=== PATIENT | male | born 1970 | race Caucasian/White ===

== ENCOUNTER → 2017-05-05 | Outpatient (CLI) | payer BC, OTHER ==
[~2017-05-05] MED LIST: CLOPIDOGREL75 MG PO; LISINOPRIL5 MG PO; LOPRESSOR25 MG PO; METFORMIN HCL500 MG PO; NEXIUM40 MG PO; PANTOPRAZOLE SO40 MG PO
[2017-05-05 16:54] LABS: HEMATOCRIT 44.7 % (42.0-52.0); HEMOGLOBIN 15.8 g/dl (14.0-18.0); MEAN CELL VOLUME 90.9 fl (80.0-94.0); MEAN CORPUSCULAR HGB 32.1 pg (27.0-31.0); MEAN CORPUSCULAR HGB CONC 35.3 g/dl (33.0-37.0); MEAN PLATELET VOLUME 10.8 fl (9.6-12.3); PLATELET COUNT AUTOMATED 234 10*3/uL (130-400); RED BLOOD COUNT 4.92 10*6/uL (4.50-5.90); WHITE BLOOD COUNT 15.8 10*3/uL (4.8-10.8)
[2017-05-05 17:12] LABS: ALBUMIN 2.5 gm/dl (3.1-4.5); BUN 21 mg/dl (7-24); CHLORIDE 88 mmol/L (98-107); CREATININE 1.04 mg/dL (0.70-1.30); POTASSIUM 4.6 mmol/L (3.5-5.1); SGOT/AST 22 IU/L (3-35); SGPT/ALT 38 U/L (12-78); SODIUM 126 mmol/L (136-145)
[2017-05-05 17:15] LABS: ALKALINE PHOSPHATASE 99 U/L (45-117); CHOLESTEROL 99 mg/dL (<200); TOTAL PROTEIN 7.3 gm/dL (6.4-8.2); TRIGLYCERIDES 228 mg/dl (<150); VLDL CHOLESTEROL 46 mg/dL (6-40)
[2017-05-05 17:16] LABS: HDL CHOLESTEROL 17 mg/dl (40-60); LDL CHOLESTEROL 36 mg/dL (9-159)
[2017-05-05 17:28] LABS: LIPASE 1838 U/L (73-393)
[2017-05-05 17:38] LABS: TOTAL CELLS COUNTED 100 #CELLS
[2017-05-05 17:39] LABS: PLATELET SUFFICIENCY NORMAL (NORMAL)
== END | disposition home or self-care (01) ==
LOC: LAB 16:17
PROVIDERS: Registered Nurse Flight
DX: K29.00 Acute gastritis without bleeding (principal); E11.9 Type 2 diabetes mellitus without complications; E78.4 Other hyperlipidemia

== ENCOUNTER 2017-05-06 17:19 | Inpatient (IN) | payer BC, OTHER ==
[~2017-05-06] VITALS: Ht 182.9 cm; Wt 95.4 kg
[~2017-05-06 17:19] MED LIST changes: -LOPRESSOR25 MG PO; -NEXIUM40 MG PO
[2017-05-06 17:28] VITALS: BP 134/88
[2017-05-06 19:25] LABS: HEMATOCRIT 44.9 % (42.0-52.0); HEMOGLOBIN 15.8 g/dl (14.0-18.0); MEAN CELL VOLUME 91.8 fl (80.0-94.0); MEAN CORPUSCULAR HGB 32.3 pg (27.0-31.0); MEAN CORPUSCULAR HGB CONC 35.2 g/dl (33.0-37.0); MEAN PLATELET VOLUME 10.4 fl (9.6-12.3); PLATELET COUNT AUTOMATED 263 10*3/uL (130-400); RED BLOOD COUNT 4.89 10*6/uL (4.50-5.90); RED CELL DISTRI WIDTH 12.1 % (0-14.5); WHITE BLOOD COUNT 16.4 10*3/uL (4.8-10.8)
[2017-05-06 19:39] LABS: ALBUMIN 2.2 gm/dl (3.1-4.5); ALKALINE PHOSPHATASE 88 U/L (45-117); BUN 19 mg/dl (7-24); CHLORIDE 91 mmol/L (98-107); CREATININE 0.84 mg/dL (0.70-1.30); POTASSIUM 4.8 mmol/L (3.5-5.1); SGOT/AST 30 IU/L (3-35); SGPT/ALT 34 U/L (12-78); SODIUM 128 mmol/L (136-145); TOTAL PROTEIN 7.5 gm/dL (6.4-8.2)
[2017-05-06 19:41] LABS: LIPASE 2118 U/L (73-393)
[2017-05-06 19:44] LABS: BASOPHILS 1 % (0-1); TOTAL CELLS COUNTED 100 #CELLS
[2017-05-06 19:45] LABS: PLATELET SUFFICIENCY NORMAL (NORMAL); POLYCHROMASIA SLIGHT
[2017-05-06 20:26] LABS: BILIRUBIN NEGATIVE (NEGATIVE); BLOOD NEGATIVE (NEGATIVE); CLARITY CLEAR (CLEAR); COLOR YELLOW (YELLOW); GLUCOSE 2+ (NEGATIVE); KETONE 3+ (NEGATIVE); LEUKO ESTERASE NEGATIVE (NEGATIVE); NITRITE NEGATIVE (NEGATIVE); SPECIFIC GRAVITY <= 1.005 (1.005-1.030); UROBILINOGEN 0.2 E.U./dl (0.2-1.0)
[2017-05-06 20:33] LABS: BACTERIA TRACE; EPITHELIAL CELLS 0-2; RBC 0-2 rbc/hpf (0-2)
[2017-05-06 21:00] VITALS: BP 139/71
[2017-05-06] MEDS ORDERED: LOPRESSOR25 MG PO (21:17)
[2017-05-06] MEDS ORDERED: NEXIUM40 MG PO (21:18)
[2017-05-06 23:15] LABS: BUN 16 mg/dl (7-24); CHLORIDE 96 mmol/L (98-107); CREATININE 0.74 mg/dL (0.70-1.30); POTASSIUM 4.2 mmol/L (3.5-5.1); SODIUM 132 mmol/L (136-145)
[2017-05-07] VITALS: BP 111/70
[2017-05-07 02:29] LABS: BUN 14 mg/dl (7-24); CHLORIDE 97 mmol/L (98-107); CREATININE 0.67 mg/dL (0.70-1.30); POTASSIUM 3.5 mmol/L (3.5-5.1); SODIUM 134 mmol/L (136-145)
[2017-05-07 04:01] VITALS: BP 122/76
[2017-05-07 04:55] LABS: HEMATOCRIT 39.3 % (42.0-52.0); MEAN CELL VOLUME 91.4 fl (80.0-94.0); MEAN CORPUSCULAR HGB 31.9 pg (27.0-31.0); MEAN CORPUSCULAR HGB CONC 34.9 g/dl (33.0-37.0); PLATELET COUNT AUTOMATED 228 10*3/uL (130-400); RED CELL DISTRI WIDTH 12.1 % (0-14.5); WHITE BLOOD COUNT 17.6 10*3/uL (4.8-10.8)
[2017-05-07 04:57] LABS: HEMOGLOBIN 13.7 g/dl (14.0-18.0)
[2017-05-07 05:04] LABS: ACT PARTIAL THROMBO TIME 23.1 SECONDS (20.8-31.5); INTERNATIONAL NORM RATIO 1.1 (2.0-3.5)
[2017-05-07 05:20] LABS: ALBUMIN 1.9 gm/dl (3.1-4.5); ALKALINE PHOSPHATASE 63 U/L (45-117); BUN 12 mg/dl (7-24); CHLORIDE 96 mmol/L (98-107); CHOLESTEROL 70 mg/dL (<200); CREATININE 0.56 mg/dL (0.70-1.30); HDL CHOLESTEROL 18 mg/dl (40-60); LDL CHOLESTEROL 27 mg/dL (9-159); LIPASE 1392 U/L (73-393); PHOSPHOROUS 2.8 mg/dL (2.5-4.9); POTASSIUM 3.5 mmol/L (3.5-5.1); SGOT/AST 23 IU/L (3-35); SGPT/ALT 26 U/L (12-78); SODIUM 132 mmol/L (136-145); TRIGLYCERIDES 127 mg/dl (<150); VLDL CHOLESTEROL 25 mg/dL (6-40)
[2017-05-07 05:25] LABS: THYROID STIM HORMONE (HS) 0.989 uIU/ml (0.358-4.75)
[2017-05-07 05:28] LABS: PLATELET SUFFICIENCY NORMAL (NORMAL); TOTAL CELLS COUNTED 100 #CELLS
[2017-05-07 08:00] VITALS: BP 120/71
[2017-05-07 08:39] LABS: VITAMIN D, 25-HYDROXY 18.2 ng/mL (30-100)
[2017-05-07 09:12] LABS: BUN 10 mg/dl (7-24); CHLORIDE 96 mmol/L (98-107); CREATININE 0.63 mg/dL (0.70-1.30); POTASSIUM 3.8 mmol/L (3.5-5.1); SODIUM 132 mmol/L (136-145)
[2017-05-07 12:00] VITALS: BP 111/69
[2017-05-07 16:00] VITALS: BP 146/86
== END 2017-05-07 16:32 | disposition left against medical advice (07) | DRG 438 ==
LOC: ED 17:19 → ICCU 20:16 → EDHOLD 20:16 → ICCU 20:16 → 4E 05-07 15:06 → ICCU 05-07 15:27
PROVIDERS: Family Medicine; Nurse Practitioner Family; ADMIT Student in an Organized Health Care Education/Training Program
DX: K85.90 Acute pancreatitis without necrosis or infection, unspecified (principal); E13.10 Other specified diabetes mellitus with ketoacidosis without coma; E43 Unspecified severe protein-calorie malnutrition; R65.10 Systemic inflammatory response syndrome (SIRS) of non-infectious origin without acute organ dysfunction; K76.0 Fatty (change of) liver, not elsewhere classified; E87.1 Hypo-osmolality and hyponatremia; E78.5 Hyperlipidemia, unspecified; I10 Essential (primary) hypertension; Z53.21 Procedure and treatment not carried out due to patient leaving prior to being seen by health care provider; K57.90 Diverticulosis of intestine, part unspecified, without perforation or abscess without bleeding; F17.200 Nicotine dependence, unspecified, uncomplicated; Z98.61 Coronary angioplasty status; Z82.49 Family history of ischemic heart disease and other diseases of the circulatory system; Z71.6 Tobacco abuse counseling; Z68.28 Body mass index [BMI] 28.0-28.9, adult; Z79.4 Long term (current) use of insulin

== ENCOUNTER → 2017-05-09 | Outpatient (CLI) | payer BC, OTHER ==
[~2017-05-09] MED LIST changes: +LOPRESSOR25 MG PO; +NEXIUM40 MG PO
[2017-05-09 11:05] LABS: HEMATOCRIT 42.2 % (42.0-52.0); HEMOGLOBIN 14.7 g/dl (14.0-18.0); MEAN CELL VOLUME 93.4 fl (80.0-94.0); MEAN CORPUSCULAR HGB 32.5 pg (27.0-31.0); MEAN CORPUSCULAR HGB CONC 34.8 g/dl (33.0-37.0); RED BLOOD COUNT 4.52 10*6/uL (4.50-5.90); RED CELL DISTRI WIDTH 12.4 % (0-14.5); WHITE BLOOD COUNT 14.9 10*3/uL (4.8-10.8)
[2017-05-09 11:25] LABS: ALBUMIN 2.3 gm/dl (3.1-4.5); ALKALINE PHOSPHATASE 86 U/L (45-117); BUN 12 mg/dl (7-24); CHLORIDE 100 mmol/L (98-107); CREATININE 0.78 mg/dL (0.70-1.30); LIPASE 1253 U/L (73-393); POTASSIUM 3.8 mmol/L (3.5-5.1); SGOT/AST 29 IU/L (3-35); SGPT/ALT 36 U/L (12-78); SODIUM 135 mmol/L (136-145); TOTAL PROTEIN 7.2 gm/dL (6.4-8.2)
== END | disposition home or self-care (01) ==
LOC: LAB 10:41
PROVIDERS: Registered Nurse Flight
DX: E11.00 Type 2 diabetes mellitus with hyperosmolarity without nonketotic hyperglycemic-hyperosmolar coma (NKHHC) (principal); K85.90 Acute pancreatitis without necrosis or infection, unspecified; D72.829 Elevated white blood cell count, unspecified; R65.10 Systemic inflammatory response syndrome (SIRS) of non-infectious origin without acute organ dysfunction

== ENCOUNTER → 2017-06-09 | Outpatient (CLI) | payer BC, OTHER ==
[2017-06-09 16:16] LABS: LIPASE 409 U/L (73-393)
== END | disposition home or self-care (01) ==
LOC: LAB 15:37
PROVIDERS: Internal Medicine Gastroenterology
DX: R10.30 Lower abdominal pain, unspecified (principal); K85.90 Acute pancreatitis without necrosis or infection, unspecified

== ENCOUNTER → 2018-04-09 | Outpatient (CLI) | payer BC, OTHER ==
[2018-04-09 16:00] LABS: HEMATOCRIT 46.2 % (42.0-52.0); MEAN CELL VOLUME 94.1 fl (80.0-94.0); MEAN CORPUSCULAR HGB 32.6 pg (27.0-31.0); MEAN CORPUSCULAR HGB CONC 34.6 g/dl (33.0-37.0); MEAN PLATELET VOLUME 10.4 fl (9.6-12.3); RED BLOOD COUNT 4.91 10*6/uL (4.50-5.90); RED CELL DISTRI WIDTH 11.9 % (0-14.5); WHITE BLOOD COUNT 6.8 10*3/uL (4.8-10.8)
[2018-04-09 16:16] LABS: ALBUMIN 3.5 gm/dl (3.1-4.5); ALKALINE PHOSPHATASE 43 U/L (45-117); BUN 6 mg/dl (7-24); CHLORIDE 108 mmol/L (98-107); CHOLESTEROL 154 mg/dL (<200); CREATININE 0.94 mg/dL (0.70-1.30); HDL CHOLESTEROL 31 mg/dl (40-60); LDL CHOLESTEROL 95 mg/dL (9-159); POTASSIUM 4.4 mmol/L (3.5-5.1); SGOT/AST 42 IU/L (3-35); SGPT/ALT 52 U/L (12-78); SODIUM 138 mmol/L (136-145); TOTAL PROTEIN 7.2 gm/dL (6.4-8.2); TRIGLYCERIDES 142 mg/dl (<150); VLDL CHOLESTEROL 28 mg/dL (6-40)
== END | disposition home or self-care (01) ==
LOC: LAB 15:25
PROVIDERS: Registered Nurse Flight
DX: E11.65 Type 2 diabetes mellitus with hyperglycemia (principal); E78.49 Other hyperlipidemia; Z87.19 Personal history of other diseases of the digestive system

== ENCOUNTER → 2018-04-21 | Outpatient (CLI) | payer BC, OTHER | LOC: ORTHO 04:05 | DX: M25.522 Pain in left elbow (principal); R20.0 Anesthesia of skin; M79.642 Pain in left hand ==

== ENCOUNTER → 2018-10-02 | Outpatient (CLI) | payer BC ==
[2018-10-02 16:56] LABS: CHOLESTEROL 166 mg/dL (<200); HDL CHOLESTEROL 31 mg/dl (40-60); TRIGLYCERIDES 408 mg/dl (<150)
[2018-10-02 17:04] LABS: VITAMIN D, 25-HYDROXY 23.6 ng/mL (30-100)
== END | disposition home or self-care (01) ==
LOC: LAB 15:47
PROVIDERS: Internal Medicine Endocrinology, Diabetes & Metabolism
DX: G62.9 Polyneuropathy, unspecified (principal); I10 Essential (primary) hypertension; E55.9 Vitamin D deficiency, unspecified

== ENCOUNTER → 2019-03-01 | Outpatient (CLI) | payer BC ==
[2019-03-01 09:57] LABS: CHLORIDE 102 mmol/L (98-107); POTASSIUM 4.1 mmol/L (3.5-5.1); SODIUM 135 mmol/L (136-145)
[2019-03-01 10:06] LABS: ALBUMIN 3.8 gm/dl (3.1-4.5); ALKALINE PHOSPHATASE 53 U/L (45-117); BUN 9 mg/dl (7-24); CHOLESTEROL 132 mg/dL (<200); HDL CHOLESTEROL 40 mg/dl (40-60); LDL CHOLESTEROL 53 mg/dL (9-159); SGOT/AST 36 IU/L (3-35); SGPT/ALT 44 U/L (12-78); TOTAL PROTEIN 7.9 gm/dL (6.4-8.2); TRIGLYCERIDES 195 mg/dl (<150); VLDL CHOLESTEROL 39 mg/dL (6-40)
[2019-03-01 10:38] LABS: VITAMIN D, 25-HYDROXY 23.9 ng/mL (30-100)
[2019-03-02 11:11] LABS: CREATININE,URINE 40.2 mg/dL (Not Estab.); MICRO ALBUMIN/CRE RATIO 90.5 (0.0-30.0)
[2019-03-02 12:07] LABS: LDL CHOLESTEROL (DIRECT) 71 mg/dL (0-99)
== END | disposition home or self-care (01) ==
LOC: LAB 09:09
PROVIDERS: Internal Medicine Endocrinology, Diabetes & Metabolism
DX: E08.10 Diabetes mellitus due to underlying condition with ketoacidosis without coma (principal); E78.2 Mixed hyperlipidemia; E55.9 Vitamin D deficiency, unspecified; G62.9 Polyneuropathy, unspecified

== ENCOUNTER 2019-05-24 08:28 | Emergency (ER) | payer BC ==
[~2019-05-24] VITALS: Ht 182.8 cm; Wt 94.3 kg
[2019-05-24] MEDS ORDERED: AUGMENTIN 875-875 MG PO (09:50)
[2019-05-24] MEDS ORDERED: MOXIFLOXACIN3 ML OPH (09:50)
== END 2019-05-24 10:00 | disposition home or self-care (01) ==
LOC: ED 08:28
DX: S05.02XA Injury of conjunctiva and corneal abrasion without foreign body, left eye, initial encounter (principal); H11.32 Conjunctival hemorrhage, left eye; E11.9 Type 2 diabetes mellitus without complications; E78.5 Hyperlipidemia, unspecified; I10 Essential (primary) hypertension; W55.03XA Scratched by cat, initial encounter; Y93.89 Activity, other specified; Y92.098 Other place in other non-institutional residence as the place of occurrence of the external cause; Y99.8 Other external cause status

== ENCOUNTER → 2019-06-18 | Outpatient (CLI) | payer BC, OTHER ==
[~2019-06-18] MED LIST changes: +AUGMENTIN 875-875 MG PO; +MOXIFLOXACIN3 ML OPH
[2019-06-18 17:08] LABS: ALBUMIN 3.8 gm/dl (3.1-4.5); ALKALINE PHOSPHATASE 48 U/L (45-117); BUN 12 mg/dl (7-24); CHLORIDE 104 mmol/L (98-107); CHOLESTEROL 119 mg/dL (<200); CREATININE 1.04 mg/dL (0.70-1.30); HDL CHOLESTEROL 39 mg/dl (40-60); LDL CHOLESTEROL 47 mg/dL (9-159); POTASSIUM 3.9 mmol/L (3.5-5.1); SGOT/AST 23 IU/L (3-35); SGPT/ALT 38 U/L (12-78); SODIUM 138 mmol/L (136-145); TOTAL PROTEIN 7.6 gm/dL (6.4-8.2); TRIGLYCERIDES 165 mg/dl (<150); VLDL CHOLESTEROL 33 mg/dL (6-40)
[2019-06-18 17:57] LABS: VITAMIN D, 25-HYDROXY 36.1 ng/mL (30-100)
[2019-06-19 06:03] LABS: CREATININE,URINE 79.5 mg/dL (Not Estab.); MICRO ALBUMIN/CRE RATIO 20.5 (0.0-30.0)
== END | disposition home or self-care (01) ==
LOC: LAB 16:31
PROVIDERS: Internal Medicine Endocrinology, Diabetes & Metabolism
DX: E08.10 Diabetes mellitus due to underlying condition with ketoacidosis without coma (principal); E55.9 Vitamin D deficiency, unspecified; G62.9 Polyneuropathy, unspecified

== ENCOUNTER → 2019-11-12 | Outpatient (CLI) | payer BC, OTHER ==
[2019-11-12 16:20] LABS: ALBUMIN 3.8 gm/dl (3.1-4.5); BUN 12 mg/dl (7-24); CHLORIDE 105 mmol/L (98-107); CHOLESTEROL 116 mg/dL (<200); CREATININE 0.92 mg/dL (0.70-1.30); POTASSIUM 3.7 mmol/L (3.5-5.1); SGOT/AST 18 IU/L (3-35); SGPT/ALT 33 U/L (12-78); SODIUM 136 mmol/L (136-145); TRIGLYCERIDES 179 mg/dl (<150); VLDL CHOLESTEROL 36 mg/dL (6-40)
[2019-11-12 16:23] LABS: ALKALINE PHOSPHATASE 52 U/L (45-117); HDL CHOLESTEROL 37 mg/dl (40-60); LDL CHOLESTEROL 43 mg/dL (9-159); TOTAL PROTEIN 7.8 gm/dL (6.4-8.2)
[2019-11-12 16:59] LABS: VITAMIN D, 25-HYDROXY 26.3 ng/mL (30-100)
[2019-11-13 10:03] LABS: CREATININE,URINE 57.8 mg/dL (Not Estab.)
== END | disposition home or self-care (01) ==
LOC: LAB 15:46
PROVIDERS: Internal Medicine Endocrinology, Diabetes & Metabolism
DX: E55.9 Vitamin D deficiency, unspecified (principal); E53.8 Deficiency of other specified B group vitamins; E08.10 Diabetes mellitus due to underlying condition with ketoacidosis without coma

== ENCOUNTER → 2020-04-12 | Outpatient (CLI) | payer BC, OTHER ==
[2020-04-12 10:07] LABS: ALBUMIN 3.8 gm/dl (3.1-4.5); ALKALINE PHOSPHATASE 54 U/L (45-117); BUN 11 mg/dl (7-24); CHLORIDE 104 mmol/L (98-107); CHOLESTEROL 115 mg/dL (<200); CREATININE 0.84 mg/dL (0.70-1.30); HDL CHOLESTEROL 37 mg/dl (40-60); LDL CHOLESTEROL 27 mg/dL (9-159); POTASSIUM 4.3 mmol/L (3.5-5.1); SGOT/AST 28 IU/L (3-35); SGPT/ALT 47 U/L (12-78); SODIUM 134 mmol/L (136-145); TOTAL PROTEIN 7.9 gm/dL (6.4-8.2); TRIGLYCERIDES 257 mg/dl (<150); VLDL CHOLESTEROL 51 mg/dL (6-40)
[2020-04-12 10:42] LABS: VITAMIN D, 25-HYDROXY 32.1 ng/mL (30-100)
[2020-04-13 10:09] LABS: CREATININE,URINE 64.4 mg/dL (Not Estab.)
== END | disposition home or self-care (01) ==
LOC: LAB 09:13
PROVIDERS: ATTEND Internal Medicine Endocrinology, Diabetes & Metabolism
DX: E55.9 Vitamin D deficiency, unspecified (principal); E08.10 Diabetes mellitus due to underlying condition with ketoacidosis without coma; E53.8 Deficiency of other specified B group vitamins

== ENCOUNTER → 2020-09-26 | Outpatient (CLI) | payer BC ==
[2020-09-26 12:56] LABS: ALBUMIN 3.9 gm/dl (3.1-4.5); ALKALINE PHOSPHATASE 58 U/L (45-117); BUN 14 mg/dl (7-24); CHLORIDE 99 mmol/L (98-107); CHOLESTEROL 210 mg/dL (<200); CREATININE 0.96 mg/dL (0.70-1.30); HDL CHOLESTEROL 56 mg/dl (40-60); LDL CHOLESTEROL 137 mg/dL (9-159); POTASSIUM 3.8 mmol/L (3.5-5.1); SGOT/AST 26 IU/L (3-35); SGPT/ALT 46 U/L (12-78); SODIUM 132 mmol/L (136-145); TRIGLYCERIDES 87 mg/dl (<150); VLDL CHOLESTEROL 17 mg/dL (6-40)
[2020-09-26 13:19] LABS: VITAMIN D, 25-HYDROXY 36.1 ng/mL (30-100)
[2020-09-27 10:08] LABS: CREATININE,URINE 25.1 mg/dL (Not Estab.)
== END | disposition home or self-care (01) ==
LOC: LAB 11:56
PROVIDERS: ATTEND Internal Medicine Endocrinology, Diabetes & Metabolism
DX: E55.9 Vitamin D deficiency, unspecified (principal); E11.10 Type 2 diabetes mellitus with ketoacidosis without coma; E53.8 Deficiency of other specified B group vitamins

== ENCOUNTER → 2020-11-23 | Outpatient (CLI) | payer BC ==
[2020-11-23 15:01] LABS: BASO # 0.1 10*3/uL (0.0-0.1); BASO % 1.4 % (0.0-1.0); EOS # 0.1 10*3/uL (0.0-0.4); EOS % 0.9 % (1.0-4.0); HEMATOCRIT 44.8 % (42.0-52.0); LYMPH # 2.3 10*3/uL (1.3-4.4); LYMPH % 24.2 % (27.0-41.0); MEAN CELL VOLUME 92.2 fl (80.0-94.0); MEAN CORPUSCULAR HGB 31.1 pg (27.0-31.0); MEAN CORPUSCULAR HGB CONC 33.7 g/dl (33.0-37.0); MONO # 0.7 10*3/uL (0.1-1.0); MONO % 7.7 % (3.0-9.0); NEUT # 6.1 10*3/uL (2.3-7.9); NEUT % 64.6 % (47.0-73.0); PLATELET COUNT AUTOMATED 322 10*3/uL (130-400); RED BLOOD COUNT 4.86 10*6/uL (4.50-5.90); RED CELL DISTRI WIDTH 13.2 % (0-14.5); WHITE BLOOD COUNT 9.5 10*3/uL (4.8-10.8)
[2020-11-23 15:25] LABS: ALBUMIN 2.6 gm/dl (3.1-4.5); ALKALINE PHOSPHATASE 63 U/L (45-117); BUN 10 mg/dl (7-24); CHLORIDE 96 mmol/L (98-107); CREATININE 0.61 mg/dL (0.70-1.30); POTASSIUM 4.1 mmol/L (3.5-5.1); SGOT/AST 17 IU/L (3-35); SGPT/ALT 25 U/L (12-78); SODIUM 132 mmol/L (136-145); TOTAL PROTEIN 7.7 gm/dL (6.4-8.2)
== END | disposition home or self-care (01) ==
LOC: LAB 14:42
PROVIDERS: ATTEND Internal Medicine Endocrinology, Diabetes & Metabolism
DX: R63.4 Abnormal weight loss (principal)

== ENCOUNTER → 2020-12-29 | Outpatient (CLI) | payer BC ==
[2020-12-29 15:56] LABS: ALBUMIN 3.6 gm/dl (3.1-4.5); BUN 9 mg/dl (7-24); CHLORIDE 103 mmol/L (98-107); CHOLESTEROL 128 mg/dL (<200); CREATININE 0.58 mg/dL (0.70-1.30); POTASSIUM 4.2 mmol/L (3.5-5.1); SGOT/AST 17 IU/L (3-35); SGPT/ALT 17 U/L (12-78); SODIUM 136 mmol/L (136-145); TOTAL PROTEIN 7.6 gm/dL (6.4-8.2); TRIGLYCERIDES 179 mg/dl (<150)
[2020-12-29 15:57] LABS: ALKALINE PHOSPHATASE 59 U/L (45-117); LDL CHOLESTEROL 60 mg/dL (9-159)
[2020-12-30 10:07] LABS: CREATININE,URINE 48.9 mg/dL (Not Estab.)
== END | disposition home or self-care (01) ==
LOC: LAB 14:51
PROVIDERS: ATTEND Internal Medicine Endocrinology, Diabetes & Metabolism
DX: E55.9 Vitamin D deficiency, unspecified (principal); E08.10 Diabetes mellitus due to underlying condition with ketoacidosis without coma; E53.8 Deficiency of other specified B group vitamins

== ENCOUNTER → 2021-01-03 | Outpatient (CLI) | payer BC ==
[2021-01-03 14:01] LABS: FREE T4 1.17 ng/dl (0.76-1.46)
[2021-01-03 14:06] LABS: THYROID STIM HORMONE (HS) 1.32 uIU/ml (0.358-4.75)
== END | disposition home or self-care (01) ==
LOC: LAB 13:14
PROVIDERS: ATTEND Internal Medicine Endocrinology, Diabetes & Metabolism
DX: E11.65 Type 2 diabetes mellitus with hyperglycemia (principal)

== ENCOUNTER → 2021-02-19 | Outpatient (CLI) | payer BC | END | disposition home or self-care (01) | LOC: CARD 09:00 | PROVIDERS: ATTEND Internal Medicine Cardiovascular Disease | DX: I49.9 Cardiac arrhythmia, unspecified (principal) ==

== ENCOUNTER → 2021-03-22 | Outpatient (CLI) | payer BC ==
[2021-03-22 15:53] LABS: ALKALINE PHOSPHATASE 57 U/L (45-117); BUN 11 mg/dl (7-24); CHLORIDE 100 mmol/L (98-107); CHOLESTEROL 104 mg/dL (<200); CREATININE 0.85 mg/dL (0.70-1.30); LDL CHOLESTEROL 32 mg/dL (9-159); POTASSIUM 4.2 mmol/L (3.5-5.1); SGOT/AST 13 IU/L (3-35); SGPT/ALT 19 U/L (12-78); SODIUM 136 mmol/L (136-145); TOTAL PROTEIN 7.5 gm/dL (6.4-8.2); TRIGLYCERIDES 182 mg/dl (<150)
[2021-03-22 16:17] LABS: VITAMIN D, 25-HYDROXY 30.7 ng/mL (30-100)
== END | disposition home or self-care (01) ==
LOC: LAB 15:11
PROVIDERS: ATTEND Internal Medicine Endocrinology, Diabetes & Metabolism
DX: E55.9 Vitamin D deficiency, unspecified (principal); E11.65 Type 2 diabetes mellitus with hyperglycemia; E53.8 Deficiency of other specified B group vitamins

== ENCOUNTER → 2021-07-19 | Outpatient (CLI) | payer BC ==
[2021-07-19 11:15] LABS: BILIRUBIN Negative (Negative); BLOOD Negative (Negative); CLARITY Clear (Clear); COLOR Yellow (Yellow); GLUCOSE 3+ (Negative); KETONE Trace (Negative); LEUKO ESTERASE Negative (Negative); NITRITE Negative (Negative); UROBILINOGEN 0.2 E.U./dl (0.0-1.0)
[2021-07-19 11:28] LABS: EPITHELIAL CELLS 0-2
[2021-07-19 11:30] LABS: ALBUMIN 3.7 gm/dl (3.1-4.5); ALKALINE PHOSPHATASE 64 U/L (45-117); BUN 10 mg/dl (7-24); CHLORIDE 102 mmol/L (98-107); CHOLESTEROL 186 mg/dL (<200); CREATININE 0.73 mg/dL (0.70-1.30); LDL CHOLESTEROL 106 mg/dL (9-159); POTASSIUM 4.2 mmol/L (3.5-5.1); SGOT/AST 37 IU/L (3-35); SGPT/ALT 36 U/L (12-78); SODIUM 133 mmol/L (136-145); TOTAL PROTEIN 7.9 gm/dL (6.4-8.2); TRIGLYCERIDES 66 mg/dl (<150)
== END | disposition home or self-care (01) ==
LOC: LAB 10:46
PROVIDERS: ATTEND Internal Medicine
DX: E11.65 Type 2 diabetes mellitus with hyperglycemia (principal); E04.9 Nontoxic goiter, unspecified; E78.5 Hyperlipidemia, unspecified; E55.9 Vitamin D deficiency, unspecified

== ENCOUNTER → 2022-05-16 | Outpatient (CLI) | payer BC ==
[2022-05-16 15:45] LABS: BILIRUBIN Negative (Negative); BLOOD Negative (Negative); CLARITY Clear (Clear); COLOR Yellow (Yellow); GLUCOSE 3+ (Negative); KETONE 1+ (Negative); LEUKO ESTERASE Negative (Negative); NITRITE Negative (Negative); SPECIFIC GRAVITY 1.015 (1.001-1.030); UROBILINOGEN 0.2 E.U./dl (0.0-1.0)
[2022-05-16 16:03] LABS: EPITHELIAL CELLS 0-2; RBC 0-2 rbc/hpf (0-2)
[2022-05-16 16:10] LABS: ALKALINE PHOSPHATASE 52 U/L (46-116); BUN 5 mg/dl (9-23); CHLORIDE 101 mmol/L (98-107); CREATININE 0.83 mg/dL (0.70-1.30); FREE T4 1.21 ng/dl (0.89-1.76); SGPT/ALT 14 U/L (10-49); SODIUM 133 mmol/L (136-145); THYROID STIM HORMONE (HS) 2.338 uIU/ml (0.550-4.780); TOTAL PROTEIN 7.4 gm/dL (6.0-8.0)
== END | disposition home or self-care (01) ==
LOC: LAB 15:05
PROVIDERS: ATTEND Internal Medicine
DX: E11.65 Type 2 diabetes mellitus with hyperglycemia (principal); E04.9 Nontoxic goiter, unspecified; E55.9 Vitamin D deficiency, unspecified; E78.5 Hyperlipidemia, unspecified

== ENCOUNTER → 2022-10-31 | Outpatient (CLI) | payer BC ==
[2022-10-31 16:33] LABS: BILIRUBIN Negative (Negative); BLOOD Negative (Negative); CLARITY Clear (Clear); COLOR Yellow (Yellow); GLUCOSE 3+ (Negative); KETONE 1+ (Negative); LEUKO ESTERASE Negative (Negative); NITRITE Negative (Negative); SPECIFIC GRAVITY 1.025 (1.001-1.030)
[2022-10-31 16:41] LABS: BACTERIA TRACE; RBC 0-2 rbc/hpf (0-2); WBC 0-2 wbc/hpf (0-5)
[2022-10-31 16:55] LABS: ALKALINE PHOSPHATASE 49 U/L (46-116); BUN 8 mg/dl (9-23); CHLORIDE 99 mmol/L (98-107); CHOLESTEROL 177 mg/dL (<200); LDL CHOLESTEROL 99 mg/dL (9-159); POTASSIUM 3.8 mmol/L (3.4-5.1); SGPT/ALT 18 U/L (10-49); TOTAL PROTEIN 7.5 gm/dL (6.0-8.0); TRIGLYCERIDES 121 mg/dl (<150)
== END | disposition home or self-care (01) ==
LOC: LAB 16:04
PROVIDERS: ATTEND Internal Medicine
DX: E11.9 Type 2 diabetes mellitus without complications (principal); E78.5 Hyperlipidemia, unspecified; E55.9 Vitamin D deficiency, unspecified

== ENCOUNTER → 2023-07-04 | Outpatient (CLI) | payer BC ==
[2023-07-04 11:00] LABS: BILIRUBIN Negative (Negative); BLOOD Negative (Negative); CLARITY Clear (Clear); COLOR Yellow (Yellow); GLUCOSE 3+ (Negative); KETONE Negative (Negative); LEUKO ESTERASE Negative (Negative); NITRITE Negative (Negative); PH 5.5 (4.5-8.0); SPECIFIC GRAVITY 1.015 (1.001-1.030); UROBILINOGEN 0.2 E.U./dl (0.0-1.0)
[2023-07-04 11:13] LABS: HYALINE CAST 0-2; WBC 0-2 wbc/hpf (0-5)
[2023-07-04 11:29] LABS: ALKALINE PHOSPHATASE 62 U/L (46-116); CHLORIDE 106 mmol/L (98-107); CHOLESTEROL 150 mg/dL (<200); FREE T4 0.94 ng/dl (0.89-1.76); LDL CHOLESTEROL 74 mg/dL (9-159); POTASSIUM 4.2 mmol/L (3.4-5.1); SGPT/ALT 40 U/L (5-49); TOTAL PROTEIN 7.8 gm/dL (6.0-8.0); TRIGLYCERIDES 90 mg/dl (<150)
[2023-07-04 11:30] LABS: BUN < 5 mg/dl (9-23); VITAMIN D, 25-HYDROXY 35.4 ng/mL (30-100)
== END | disposition home or self-care (01) ==
LOC: LAB 10:33
PROVIDERS: ATTEND Internal Medicine
DX: E11.9 Type 2 diabetes mellitus without complications (principal); E78.5 Hyperlipidemia, unspecified; E55.9 Vitamin D deficiency, unspecified; E04.9 Nontoxic goiter, unspecified; G62.9 Polyneuropathy, unspecified

== ENCOUNTER → 2024-06-03 | Outpatient (CLI) | payer BC ==
[2024-06-03 14:34] LABS: BILIRUBIN Negative (Negative); BLOOD Negative (Negative); CLARITY Clear (Clear); COLOR Yellow (Yellow); GLUCOSE 3+ (Negative); KETONE Negative (Negative); LEUKO ESTERASE Negative (Negative); NITRITE Negative (Negative); SPECIFIC GRAVITY 1.015 (1.001-1.030); UROBILINOGEN 0.2 E.U./dl (0.0-1.0)
[2024-06-03 14:43] LABS: FINE GRANULAR CAST 0-2; MUCOUS TRACE; RBC 0-2 rbc/hpf (0-2); WBC 0-2 wbc/hpf (0-5)
[2024-06-03 14:48] LABS: ALKALINE PHOSPHATASE 64 U/L (46-116); BUN 6 mg/dl (9-23); CHLORIDE 105 mmol/L (98-107); CHOLESTEROL 147 mg/dL (<200); LDL CHOLESTEROL 74 mg/dL (9-159); POTASSIUM 4.5 mmol/L (3.4-5.1); SGPT/ALT 49 U/L (5-49); TOTAL PROTEIN 7.8 gm/dL (6.0-8.0); TRIGLYCERIDES 100 mg/dl (<150)
[2024-06-03 14:49] LABS: VITAMIN D, 25-HYDROXY 39.9 ng/mL (30-100)
== END | disposition home or self-care (01) ==
LOC: LAB 13:52
PROVIDERS: ATTEND Internal Medicine
DX: E11.9 Type 2 diabetes mellitus without complications (principal); G62.9 Polyneuropathy, unspecified; E55.9 Vitamin D deficiency, unspecified; E04.9 Nontoxic goiter, unspecified; E56.9 Vitamin deficiency, unspecified; E78.5 Hyperlipidemia, unspecified

== ENCOUNTER → 2025-05-13 | Outpatient (CLI) | payer BC ==
[2025-05-13 14:02] LABS: BILIRUBIN Negative (Negative); BLOOD Negative (Negative); CLARITY Clear (Clear); COLOR Yellow (Yellow); KETONE Negative (Negative); LEUKO ESTERASE Negative (Negative); NITRITE Negative (Negative); PH 6.0 (4.5-8.0); SPECIFIC GRAVITY 1.015 (1.001-1.030); UROBILINOGEN 0.2 E.U./dl (0.0-1.0)
[2025-05-13 14:26] LABS: WBC 0-2 wbc/hpf (0-5)
[2025-05-13 14:50] LABS: BUN 6 mg/dl (9-23); LDL CHOLESTEROL 48 mg/dL (9-159); SGPT/ALT 8 U/L (5-49); VITAMIN D, 25-HYDROXY 45.4 ng/mL (30-100)
== END | disposition home or self-care (01) ==
LOC: LAB 13:28
PROVIDERS: ATTEND Internal Medicine
DX: E11.9 Type 2 diabetes mellitus without complications (principal); E55.9 Vitamin D deficiency, unspecified; E78.5 Hyperlipidemia, unspecified; E04.9 Nontoxic goiter, unspecified; G62.9 Polyneuropathy, unspecified